=== PATIENT | female | born 1995 | race Caucasian/White ===

== ENCOUNTER 2018-02-04 12:49 | Emergency (ER) | payer SELFPAY ==
[~2018-02-04 12:49] MED LIST: CEPH-13 PO; DOXY-181 PO; HYDR-653 PO; IBUP-56 PO
[2018-02-04 12:52] VITALS: BP 109/48
--- NOTE | 2018-02-04 12:58 | ER Report ---
History and Physical Time Seen By MD: 12:58 Hx. of Stated Complaint: SORE THROAT SINCE YESTERDAY. HPI/ROS CHIEF COMPLAINT: Sore throat HISTORY OF PRESENT ILLNESS: This is a 22-year-old female presents to emergency department for a sore throat. Patient states that last night she developed a sore throat, painful to swallow, did feel warm at home, no documented fevers. No aches or chills. She has been gargling with salt water and did take aspirin last night which did help us with the discomfort. She did have nausea and 1 episode of vomiting today. No chest pain or shortness of breath. No diarrhea. REVIEW OF SYSTEMS: Respiratory: No cough, no dyspnea. Throat: As above. Cardiovascular: No chest pain, no palpitations. Gastrointestinal: No vomiting, no abdominal pain. Musculoskeletal: No back pain. Allergies: Coded Allergies: amoxicillin (Verified Allergy, Intermediate, HIVES, 12/03/15) Home Meds Active Scripts Cephalexin 500 Mg Tab (KEFLEX 500 MG TAB) 500 Mg Tablet, 500 MG PO TID for 10 Days, #30 TAB 0 Refills Prov:MAURICIO DAMON Lula BALANCE STAFF STAKER- 02/04/18 Past Medical/Surgical History The patient has no significant past medical or surgical history. Reviewed Nurses Notes: Yes Hx Smoking: No Smoking Status: Never Smoker Hx Substance Use Disorder: No Hx Alcohol Use: Yes (OCC) Constitutional Vital Sign - Last 24 Hours 02/04/18 12:52 Temp 99.1 Pulse 113 Resp 20 B/P (MAP) 109/48 Pulse Ox 94 Physical Exam General Appearance: The patient is alert, has no immediate need for airway protection and no current signs of toxicity. Eyes: Pupils equal and round no injection. ENT: TM's bulging bilaterally, pearly randle, no injection, landmarks noted. Clear nasal discharge, inferior turbinates mildly erythematous. Erythema to the posterior oropharynx and soft palate, tonsillar hypertrophy bilaterally, left greater than right, exudates noted on both tonsils. Anterior cervical chain lymphadenopathy. Respiratory: Chest is non tender, lungs are clear to auscultation. Cardiac: regular rate and rhythm. Gastrointestinal: Abdomen is soft and non tender, no masses, bowel sounds normal. Musculoskeletal: Neck: Neck is supple and non tender. Extremities have full range of motion and are non tender. Skin: No rashes or lesions. DIFFERENTIAL DIAGNOSIS: After history and physical exam differential diagnosis was considered for viral pharyngitis, strep peritonitis, Duy's angina. Medical Decision Making Data Points Laboratory Hematology Test 02/04/18 12:54 Group A Streptococcus Screen Negative (NEGATIVE) Chemistry Test 02/04/18 12:54 Group A Streptococcus Screen Negative (NEGATIVE) ED Course/Re-evaluation ED Course The patient was moved to room. Extremities were obtained. Differential diagnoses were considered. A rapid strep was obtained. The rapid strep was negative, a culture was sent. As the patient had a negative strep, did note she had a 5point score of the painFEVER strep criteria, therefore I did treat her for strep. She was given an Rx for Keflex and magic mouthwash. She was instructed to stay home from work today and tomorrow. She had no other questions or concerns at this [facility]. She was also instructed to contact Dr. Pires for chronic strep throat symptoms. Decision to Disposition Date: Feb 04, 2018 Decision to Disposition Time: 14:29 Depart Departure Latest Vital Signs Vital Signs Date Time Temp Pulse Resp B/P (MAP) Pulse Ox O2 Delivery O2 Flow Rate FiO2 02/04/18 12:52 99.1 113 20 109/48 94 Impression: Primary Impression: Exudative pharyngitis Condition: Improved Disposition: HOME OR SELF-CARE Referrals: MAIN PIRES JR, MD New Scripts Cephalexin 500 Mg Tab (KEFLEX 500 MG TAB) 500 Mg Tablet 500 MG PO TID for 10 Days, #30 TAB 0 Refills Prov: MAURICIO DAMON BALANCE STAFF STAKER-BC 02/04/18 Patient Instructions: Pharyngitis (ED) Additional Instructions: The rapid strep test was negative, however due to your symptoms, I am going to start you on Keflex, complete the course unless you hear from us for the negative culture results. Continue with salt water gargles. Drink plenty of fluids. Get plenty of rest. Use the magic mouthwash as needed for throat pain. Follow up with your pcp next week if no improvement. Return to the ED for any other concerns or worsening symptoms. MAURICIO DAMON BALANCE STAFF STAKER-BC Feb 04, 2018 12:58
[2018-02-04] MEDS ORDERED: DEXAMETHASONE SOD PHOS 10MG/ML PO ONE (13:10)
[2018-02-04] MEDS ORDERED: CEPH500T7 PO (14:32)
== END 2018-02-04 14:41 | disposition home or self-care (01) ==
LOC: ER 12:55
DX: J02.8 Acute pharyngitis due to other specified organisms (principal)
CPT/HCPCS: 87081; 87880; 99283; J1100

== ENCOUNTER 2018-08-06 06:20 | Emergency (ER) | payer SELFPAY ==
[~2018-08-06 06:20] MED LIST changes: +CEPH500T7 PO
--- NOTE | 2018-08-06 06:28 | ER Report ---
History and Physical Time Seen By MD: 06:26 HPI/ROS CHIEF COMPLAINT: Sore throat, cough HISTORY OF PRESENT ILLNESS: 22-year-old female presents ambulatory to the ER complaining of severe sore throat. She was unable to sleep last night. She notes a barky cough. Patient notes a fever. Patient denies exposure to ill contacts. She denies nausea or vomiting. Patient notes mild bilateral ear pain. She's had no sinus drainage. REVIEW OF SYSTEMS: Respiratory: No cough, no dyspnea. Cardiovascular: No chest pain, no palpitations. Gastrointestinal: No vomiting, no abdominal pain. Musculoskeletal: No back pain. Allergies: Coded Allergies: amoxicillin (Verified Allergy, Intermediate, HIVES, 08/06/18) Home Meds Active Scripts Cephalexin 500 Mg Tab (KEFLEX 500 MG TAB) 500 Mg Tablet, 500 MG PO TID for infection, #20 TAB Prov:ANGELA RAMIRES DO 08/06/18 Discontinued Scripts Cephalexin 500 Mg Tab (KEFLEX 500 MG TAB) 500 Mg Tablet, 500 MG PO TID for 10 Days, #30 TAB 0 Refills Prov:MAURICIO DAMON MUTUEL MACHINE OPERATOR-BC 02/04/18 Reviewed Nurses Notes: Yes Old Medical Records Reviewed: Yes Hx Smoking: No Smoking Status: Never Smoker Hx Substance Use Disorder: No Hx Alcohol Use: Yes (OCC) Constitutional Vital Sign - Last 24 Hours 08/06/18 06:20 Temp 98.7 Pulse 74 Resp 16 Pulse Ox 96 O2 Delivery Room Air Physical Exam General Appearance: The patient is alert, has no immediate need for airway protection and no current signs of toxicity. Vital signs stable, afebrile, pulse ox normal HEENT: Pupils equal and round no injection. TMs normal, oropharynx with mild erythema, tonsillar hypertrophy and a trace exudate Respiratory: Chest is non tender, lungs are clear to auscultation. Cardiac: regular rate and rhythm Gastrointestinal: Abdomen is soft and non tender, no masses, bowel sounds normal. Musculoskeletal: Neck: Neck is supple and non tender. No lymphadenopathy, no meningismus Extremities have full range of motion and are non tender. Skin: No rashes or lesions. DIFFERENTIAL DIAGNOSIS: After history and physical exam differential diagnosis was considered for sore throat, pharyngitis, sinusitis, otitis media, exudative tonsillitis, croup, pneumonia, bronchitis Medical Decision Making ED Course/Re-evaluation ED Course Patient was minute to an examination room. H&P was done. The differential diagnoses was considered. On clinical examination. Patient has sore throat. She's had some low-grade fevers. She had a barky cough when she woke up, suggesting some mild croup or falls croup. Patient has exudative tonsillitis. He should be treated with Keflex and she has a penicillin allergy. She's given Decadron 8 mg by mouth and discharged with Lortab prepack of to protect for pain relief. She is advised to switch over to symptomatically treatment with Advil and DayQuil as well as ibuprofen for pain relief. Patient advised to follow-up with primary care if unimproved in 3-5 days Decision to Disposition Date: August 06, 2018 Decision to Disposition Time: 06:35 Depart Departure Latest Vital Signs Vital Signs Date Time Temp Pulse Resp B/P (MAP) Pulse Ox O2 Delivery O2 Flow Rate FiO2 08/06/18 06:20 98.7 74 16 96 Room Air Impression: Primary Impression: Acute pharyngitis Condition: Improved Disposition: HOME OR SELF-CARE New Scripts Cephalexin 500 Mg Tab (KEFLEX 500 MG TAB) 500 Mg Tablet 500 MG PO TID for infection, #20 TAB Prov: ANGELA RAMIRES DO 08/06/18 Patient Instructions: Pharyngitis (ED) Additional Instructions: Take Tylenol or ibuprofen for pain relief Follow-up with primary care if unimproved in 3-5 days. Problem Qualifiers Primary Impression: Acute pharyngitis Pharyngitis/tonsillitis etiology: unspecified etiology Qualified Codes: J02.9 - Acute pharyngitis, unspecified ANGELA RAMIRES DO August 06, 2018 06:28
[2018-08-06] MEDS ORDERED: CEPHALEXIN MONO 500 MG CAP PO ONE (06:35)
[2018-08-06] MEDS ORDERED: ACET/HYDROC 5/325MG TH ER ONLY 2 TAB/BOTTLE PO ONE (06:35)
[2018-08-06] MEDS ORDERED: DEXAMETHASONE 4 MG TAB PO ONE (06:35)
[2018-08-06] MEDS ORDERED: CEPH500T7 PO (06:37)
== END 2018-08-06 06:55 | disposition home or self-care (01) ==
LOC: ER 06:53
DX: J02.9 Acute pharyngitis, unspecified (principal)
CPT/HCPCS: 99283; J8540